=== PATIENT | male | born 1955 | race Caucasian/White ===

== ENCOUNTER → 2016-10-21 | Outpatient (CLI) | payer MEDICARE ==
[2014-07-06 00:01] VITALS: BP 134/74
[~2016-10-21] MED LIST: ATOR10TA PO; CLON0.5T PO; GABA-586 PO; HYDR-2766 PO; TRAZ100T12 PO; ZOLP10TA PO
[2016-10-21 10:33] LABS: BASO # 0.1 x10^3/uL (0.0-0.2); BASO % 1 % (0-3); EOS % 2 % (0-3); HEMATOCRIT 49.6 % (39.0-53.0); HEMOGLOBIN 16.7 g/dL (13.0-17.5); LYMPH % 42 % (24-48); MEAN CORPUSCULAR HEMOGLOBIN 33 pg (25-35); MEAN CORPUSCULAR HGB CONC 34 g/dL (31-37); MEAN CORPUSCULAR VOLUME 99 fL (79-100); MONO % 7 % (0-9); NEUT % 48 % (31-73); PLATELET COUNT 339 x10^3/uL (140-400); RED BLOOD COUNT 5.02 x10^6/uL (4.30-5.70); RED CELL DISTRIBUTION WIDTH 14.4 % (11.5-14.5)
[2016-10-21 10:57] LABS: ALBUMIN 3.4 g/dL (3.4-5.0); ALBUMIN/GLOBULIN RATIO 0.9 (1.0-1.7); CALCIUM 8.5 mg/dL (8.5-10.1); CHOLESTEROL/HDL RATIO 7.3; CREATININE 0.9 mg/dL (0.7-1.3); GFR 85.5; POTASSIUM 3.7 mmol/L (3.5-5.1); TOTAL BILIRUBIN 0.3 mg/dL (0.2-1.0); TOTAL PROTEIN 7.4 g/dL (6.4-8.2)
[2016-10-21 11:07] LABS: FREE T4 0.62 ng/dL (0.76-1.46)
== END | disposition home or self-care (01) ==
LOC: LAB 10:11
PROVIDERS: ATTEND Internal Medicine
DX: Z12.5 Encounter for screening for malignant neoplasm of prostate (principal); Z13.29 Encounter for screening for other suspected endocrine disorder; Z13.220 Encounter for screening for lipoid disorders; I10 Essential (primary) hypertension; J44.9 Chronic obstructive pulmonary disease, unspecified; M54.5 Low back pain; R53.83 Other fatigue
CPT/HCPCS: 36415; 80053; 80061; 84439; 84443; 85027; G0103

== ENCOUNTER 2019-06-21 19:47 | Emergency (ER) | payer MEDICARE ==
[~2019-06-21] VITALS: Ht 165.1 cm; Wt 75.0 kg
[~2019-06-21 19:47] MED LIST changes: -GABA-586 PO; +GABA300C18 PO; -HYDR-2766 PO; +HYDR-2769 PO; +TRAZ-123 PO; -TRAZ100T12 PO
[2019-06-21] MEDS ORDERED: cloNIDine HCL 0.1 MG TABLET ONE (20:11)
[2019-06-21] MEDS ORDERED: NITROGLYCERIN SUBLINGUAL 0.4 MG BOTTLE OF 25. SL STA (20:33)
--- NOTE | 2019-06-21 20:41 | PHYS DOC ---
Past Medical History Past Medical History: Hypertension Additional Past Medical Histor: CHRONIC BACK PAIN, NERVES, SLEEP APNEA Past Surgical History: No Surgical History Smoking Status: Current Every Day Smoker Alcohol Use: None Drug Use: None Adult General Chief Complaint Chief Complaint: SWALLOWED FORIEGN BODY HPI HPI Patient is a 63 year old male who presents with roast stuck in his throat for last 2 hours. Patient denies any other symptoms Complete ROS were reviewed and found to be within normal limits, except as documented in the HPI Current Medications Current Medications Current Medications Medications (Trade) Dose Ordered Sig/Bertha Start Time Stop Time Status Last Admin Dose Admin Clonidine HCl (Catapres) 0.1 mg STK-MED ONCE 06/21/19 20:11 06/21/19 20:11 DC Glucose (Insta-Glucose) 15 gm STK-MED ONCE 06/21/19 20:57 06/21/19 20:57 DC Nitroglycerin (Nitrostat) 0.4 mg 1X STAT 06/21/19 20:33 06/21/19 20:40 DC 06/21/19 20:52 0.4 MG Allergies Allergies Allergies Coded Allergies Type Severity Reaction Last Updated Verified No Known Drug Allergies 08/18/13 No Physical Exam Physical Exam Constitutional: Well developed, well nourished, no acute distress, non-toxic appearance. [] HENT: Normocephalic, atraumatic, bilateral external ears normal, oropharynx moist, no oral exudates, nose normal. [] Eyes: PERRLA, EOMI, conjunctiva normal, no discharge. [] Neck: Normal range of motion, no tenderness, supple, no stridor. [] Cardiovascular:Heart rate regular rhythm, no murmur [] Lungs & Thorax: Bilateral breath sounds clear to auscultation [] Neurologic: Alert and oriented X 3, normal motor function, normal sensory function, no focal deficits noted. [] Psychologic: Affect normal, judgement normal, mood normal. [] Current Patient Data Vital Signs Vital Signs Date Time Temp Pulse Resp B/P (MAP) Pulse Ox O2 Delivery O2 Flow Rate FiO2 06/21/19 20:52 84 99/58 06/21/19 20:10 98.2 11 98 Room Air 98.2 EKG EKG [] Radiology/Procedures Radiology/Procedures [] Course & Med Decision Making Course & Med Decision Making Pertinent Labs and Imaging studies reviewed. (See chart for details) The patient reports that he has a feeling of roast stuck in his throat. The patient not drooling, and is able to talk in complete sentences. Will give nitro mixed in water to see if that will dilate the esophagus to where this roast can move. Patient threw up the nitro and water, so then tried glucagon. Patient was able to cough up the roast with glucagon. Will discharge patient home. Dragon Disclaimer Dragon Disclaimer This electronic medical record was generated, in whole or in part, using a voice recognition dictation system. Departure Departure Impression: Primary Impression: Foreign body of esophagus Disposition: HOME, SELF-CARE Condition: STABLE Referrals: ALMA ABEL MD (PCP) Additional Instructions: Thank you for visiting [facility]. We appreciate you trusting us with your care. If any additional problems come up don't hesitate to return to visit us. Please follow up with your primary care provider so they can plan additional care if needed and know about the problem that you had. If symptoms worsen come back to the Emergency Department. Any concerning symptoms that start such as chest pain, shortness of air, weakness or numbness on one side of the body, running high fevers or any other concerning symptoms return to the ER. Problem Qualifiers Primary Impression: Foreign body of esophagus Encounter type: initial encounter Qualified Codes: T18.108A - Unspecified foreign body in esophagus causing other injury, initial encounter TITI ROJAS APRN Jun 21, 2019 20:41
[2019-06-21] MEDS ORDERED: DEXTROSE ORAL GEL 15 GM TUBE. ONE (20:57)
--- NOTE | 2019-06-21 21:23 | RAD ---
Exam: Chest one view INDICATION: Something stuck in throat TECHNIQUE: Frontal view of the chest Comparisons: 07/06/2014 FINDINGS: The cardiomediastinal silhouette and pulmonary vessels are within normal limits. The lung and pleural spaces are clear. IMPRESSION: No acute cardiopulmonary process. No radiopaque foreign body identified. Electronically signed by: Boyd Mistry MD (06/21/2019 9:20 PM) [id number]
[2019-06-21 21:32] VITALS: BP 110/63
== END 2019-06-21 21:29 | disposition home or self-care (01) ==
LOC: ER 19:47
DX: T18.108A Unspecified foreign body in esophagus causing other injury, initial encounter (principal); I10 Essential (primary) hypertension; G89.29 Other chronic pain; F17.200 Nicotine dependence, unspecified, uncomplicated; X58.XXXA Exposure to other specified factors, initial encounter; Y93.89 Activity, other specified; Y92.89 Other specified places as the place of occurrence of the external cause; Y99.8 Other external cause status
CPT/HCPCS: 71045; 99283; 99284

== ENCOUNTER 2019-06-22 12:42 | Emergency (ER) | payer MEDICAID, MEDICARE ==
[~2019-06-22] VITALS: Ht 165.1 cm; Wt 164.0 kg
[2019-06-22 13:21] VITALS: BP 116/55
--- NOTE | 2019-06-22 13:40 | PHYS DOC ---
Past Medical History Past Medical History: Hypertension Additional Past Medical Histor: CHRONIC BACK PAIN, NERVES, SLEEP APNEA Past Surgical History: No Surgical History Smoking Status: Current Every Day Smoker Alcohol Use: None Drug Use: None Adult General Chief Complaint Chief Complaint: FOREIGN BODY HPI HPI Patient is a 63 year old male who presents to the emergency department with complaints of having recipe stuck in his throat. Patient states he was seen here last night given some medication and dislodged the roast beef. However he ate roast beef again this morning and it became stuck in his throat again. He denies any shortness of breath, wheezing, stridor, chest pain, palpitations, nausea, vomiting, diarrhea, or abdominal pain. Patient was given EZ gas on arrival by the ER nurse and a large piece of roast beef was dislodged from his throat. He currently denies any complaints or pain at this time. Review of Systems Review of Systems Complete ROS is negative unless otherwise noted in HPI. Allergies Allergies Allergies Coded Allergies Type Severity Reaction Last Updated Verified No Known Drug Allergies 08/18/13 No Physical Exam Physical Exam See Above Constitutional: Well developed, well nourished, no acute distress, non-toxic appearance. [] HENT: Normocephalic, atraumatic, bilateral external ears normal, oropharynx moist, no oral exudates, nose normal. [] Eyes: PERRLA, EOMI, conjunctiva normal, no discharge. [] Neck: Normal range of motion, no tenderness, supple, no stridor. [] Cardiovascular:Heart rate regular rhythm Lungs & Thorax: Bilateral breath sounds clear to auscultation, Respirations even and unlabored, no retractions, no respiratory distress] Skin: Warm, dry, no erythema, no rash. [] Extremities: No cyanosis, ROM intact, no edema. [] Neurologic: Alert and oriented X 3, no focal deficits noted. [] Psychologic: Affect normal, judgement normal, mood normal. [] Current Patient Data Vital Signs Vital Signs Date Time Temp Pulse Resp B/P (MAP) Pulse Ox O2 Delivery O2 Flow Rate FiO2 06/22/19 13:21 98.1 81 18 116/55 (75) 97 Room Air 98.1 EKG EKG [] Radiology/Procedures Radiology/Procedures [] Course & Med Decision Making Course & Med Decision Making Pertinent Labs and Imaging studies reviewed. (See chart for details) 63-year-old male presenting to the emergency room with complaints of wrist being stuck in his throat after eating at this morning. Patient was seen for the same thing last night, however he ate roast beef again today and the same symptoms occurred. On arrival to the room the nurse gave the patient some easy gas solution to drink, the roast beef was then dislodged from the patient's throat patient denied any complaints. Patient is encouraged to follow a mechanical soft diet and not eat any meat until he is evaluated by GI. Dr. Rodas's information given. Patient encouraged to return to the emergency department if symptoms return. There was no good handout for a food bolus so I provided the patient with esophagus stricture and mechanical soft diet instructions. Patient verbalized an understanding of home care, medications, follow-up, and return to ED instructions and was in agreement with the plan of care. [] Dragon Disclaimer Dragon Disclaimer This electronic medical record was generated, in whole or in part, using a voice recognition dictation system. Departure Departure Impression: Primary Impression: Food impaction of esophagus Disposition: HOME, SELF-CARE Condition: STABLE Referrals: ODELL RODAS MD Patient Instructions: Dysphagia Diet Level 2, Mechanically Altered, Esophageal Stricture Additional Instructions: Follow up with Dr. Rodas as soon as possible, call today for an appointment. Follow the diet instruction and do not eat any meat that is not ground up until seen and evaluated by Dr. Rodas. Return to the ER if your symptoms worsen. Problem Qualifiers Primary Impression: Food impaction of esophagus Encounter type: initial encounter Qualified Codes: T18.128A - Food in esophagus causing other injury, initial encounter IVAN BAEZ [employer] Jun 22, 2019 13:40
== END 2019-06-22 13:52 | disposition home or self-care (01) ==
LOC: ER 12:42
DX: T18.128A Food in esophagus causing other injury, initial encounter (principal); I10 Essential (primary) hypertension; F17.200 Nicotine dependence, unspecified, uncomplicated; X58.XXXA Exposure to other specified factors, initial encounter; Y93.89 Activity, other specified; Y92.89 Other specified places as the place of occurrence of the external cause; Y99.8 Other external cause status
CPT/HCPCS: 99281

== ENCOUNTER → 2021-01-09 | Outpatient (CLI) | payer MEDICARE ==
--- NOTE | 2021-01-09 14:31 | RAD ---
EXAMINATION: XR CHEST 2V CLINICAL HISTORY: NON REACTIVE TB TEST EXAM DATE/TIME: 01/09/2021 11:08 AM COMPARISON: 06/21/2019 FINDINGS: Lines, Tubes, and Devices: None. Cardiomediastinal Silhouette: Normal heart size. Lungs and Pleura: No evidence of focal airspace consolidation or pleural effusion. Minimal left basil ar subsegmental atelectasis. Pulmonary vasculature unremarkable. Bones and Soft Tissues: Degenerative changes in the thoracic spine. Moderate compression deformity in the superior endplates of what is felt to represent T12. IMPRESSION: No evidence of acute cardiopulmonary abnormality or active pulmonary tuberculosis. Moderate vertebral compression fracture deformity, likely T12. Electronically signed by: Franco Fuller DO (01/09/2021 2:29 PM) BANDAR
== END ==
LOC: RAD 10:55
PROVIDERS: ATTEND Internal Medicine
DX: M47.814 Spondylosis without myelopathy or radiculopathy, thoracic region (principal); R76.11 Nonspecific reaction to tuberculin skin test without active tuberculosis
CPT/HCPCS: 71046